=== PATIENT | male | born 1995 | race Caucasian/White ===

== ENCOUNTER 2017-04-06 11:29 | Emergency (ER) | payer OTHER ==
[~2017-04-06] VITALS: Ht 182.9 cm; Wt 96.2 kg
[2017-04-06 11:30] VITALS: BP 135/65
== END 2017-04-06 12:13 | disposition home or self-care (01) ==
LOC: M ED 11:29
DX: Z00.00 Encounter for general adult medical examination without abnormal findings (principal); Z87.891 Personal history of nicotine dependence